=== PATIENT | female | born 1990 | race American Indian/Alaskan Native ===

== ENCOUNTER 2021-11-26 11:11 | Emergency (ER) | payer SELFPAY ==
[2021-11-26 11:26] VITALS: BP 147/90
[2021-11-26] MEDS ORDERED: CYCLOBENZAPRINE 10 MG TAB PO ONE (12:04)
[2021-11-26] MEDS ORDERED: dexAMETHasone 4 MG/ML VIAL PO ONE (12:04)
[2021-11-26] MEDS ORDERED: KETOROLAC 10 MG TAB PO ONE (12:04)
[2021-11-26] MEDS ORDERED: ACETAMINOPHEN W/CODEINE 300-30 MG TAB PO ONE (12:04)
--- NOTE | 2021-11-26 13:45 | Emergency Department Report ---
ED Extremity Problem HPI - General Chief complaint: Pain General Stated complaint: NECK PAIN Time Seen by Provider: 11/26/21 11:45 Source: patient Mode of arrival: Ambulatory Limitations: No Limitations - History of Present Illness Initial comments: 31-year-old black female with no past medical history presents to the emergency department for evaluation of left neck and arm pain. She states that she has a history of intermittent pain numbness and tingling to her left neck and arm after procedure a few years ago, and she states that pain has restarted over the past few days and has been getting progressively worse. She states pain is 10 out of 10. MD Complaint: extremity pain -: Gradual, days(s) Location: left, upper extremity (5-6) History of Same: Yes -: No myalgia, No arthralgia, No fever, No associated dyspnea, No associated chest pain Severity scale (0 -10): 10 Quality: aching Consistency: constant Worsens with: palpation Associated Symptoms: denies: chest pain, shortness of breath, fever, myalgias, arthralgias, rash - Related Data Previous Rx's Medication Instructions Recorded Last Taken Type Cyclobenzaprine [Flexeril] 10 mg PO TID PRN #30 tab 11/26/21 Unknown Rx Lidocaine [Lidoderm] 1 each TP DAILY PRN #10 patch 11/26/21 Unknown Rx Naproxen [Naprosyn] 500 mg PO BID 7 Days #14 tab 11/26/21 Unknown Rx methylPREDNISolone [Medrol 4MG 4 mg PO DAILY #1 pack 11/26/21 Unknown Rx DOSEPAK (21 tabs)] Allergies Allergy/AdvReac Type Severity Reaction Status Date / Time Penicillins Allergy Hives Verified 11/26/21 11:26 ED Review of Systems ROS: Stated complaint: NECK PAIN Other details as noted in HPI Comment: All other systems reviewed and negative Constitutional: denies: chills, fever Eyes: denies: vision change ENT: denies: congestion Respiratory: denies: shortness of breath Cardiovascular: denies: chest pain, palpitations, dyspnea on exertion, orthopnea, edema, syncope, paroxysmal nocturnal dyspnea Gastrointestinal: denies: abdominal pain, nausea, vomiting Genitourinary: denies: urgency, dysuria Musculoskeletal: denies: back pain Neurological: numbness (Left arm intermittently). denies: headache, weakness ED Past Medical Hx - Past Medical History Previous Medical History?: No Additional medical history: sciatica - Surgical History Past Surgical History?: No - Social History Smoking Status: Never Smoker - Medications Home Medications: Home Medications Medication Instructions Recorded Confirmed Last Taken Type Cyclobenzaprine [Flexeril] 10 mg PO TID PRN #30 tab 11/26/21 Unknown Rx Lidocaine [Lidoderm] 1 each TP DAILY PRN #10 patch 11/26/21 Unknown Rx Naproxen [Naprosyn] 500 mg PO BID 7 Days #14 tab 11/26/21 Unknown Rx methylPREDNISolone [Medrol 4MG 4 mg PO DAILY #1 pack 11/26/21 Unknown Rx DOSEPAK (21 tabs)] ED Physical Exam - General Limitations: No Limitations General appearance: alert, in no apparent distress - Head Head exam: Present: atraumatic, normocephalic - Eye Eye exam: Present: normal appearance. Absent: conjunctival injection - Neck Neck exam: Present: normal inspection, tenderness (Left side only with numbness down left arm on palpation), full ROM. Absent: lymphadenopathy - Respiratory Respiratory exam: Present: normal lung sounds bilaterally. Absent: respiratory distress, wheezes, rales, rhonchi, stridor, chest wall tenderness - Cardiovascular Cardiovascular Exam: Present: regular rate, normal heart sounds - GI/Abdominal GI/Abdominal exam: Present: soft, normal bowel sounds. Absent: distended, tenderness, guarding, rebound, rigid - Extremities Exam Extremities exam: Present: normal inspection - Expanded Upper Extremity Exam Left Shoulder Exam: Present: full ROM, tenderness Vascular: Present: normal capillary refill, radial pulse. Absent: vascular compromise, Pallo, pulse deficit brachial art - Neurological Exam Neurological exam: Present: alert, oriented X3, normal gait - Psychiatric Psychiatric exam: Present: normal affect, normal mood - Skin Skin exam: Present: warm, dry, intact, normal color ED Course Vital Signs 11/26/21 11/26/21 11:20 12:45 Temperature 98.3 F Pulse Rate 98 H Respiratory 14 18 Rate Blood Pressure 147/90 O2 Sat by Pulse 100 99 Oximetry ED Medical Decision Making - Medical Decision Making 31-year-old black female with no past medical history presents to the emergency department for evaluation of left neck and arm pain. She states that she has a history of intermittent pain numbness and tingling to her left neck and arm after procedure a few years ago, and she states that pain has restarted over the past few days and has been getting progressively worse. She states pain is 10 out of 10. Physical exam consistent with cervical radicular pain. She will be treated with steroids, nsaids and muscle relaxants now and at home. She will also have lidoderm patches to use as needed for pain. She is advised to take medications as prescribed and follow up with her pcp for further evaluation and management. She verbalizes understanding of and agreement with plan of care. Critical care attestation.: If time is entered above; I have spent that time in minutes in the direct care of this critically ill patient, excluding procedure time. ED Disposition Clinical Impression: Cervical radicular pain Disposition: 01 HOME / SELF CARE / HOMELESS Is pt being admited?: No Does the pt Need Aspirin: No Condition: Stable Instructions: Cervical Radiculopathy, [id number] Additional Instructions: Take medications as prescribed. Follow-up primary care provider if no improvement or worsening symptoms. Turn to emergency department as needed. Prescriptions: Cyclobenzaprine [Flexeril] 10 mg PO TID PRN #30 tab PRN Reason: Muscle Spasm Lidocaine [Lidoderm] 1 each TP DAILY PRN #10 patch PRN Reason: Pain, Moderate (4-6) methylPREDNISolone [Medrol 4MG DOSEPAK (21 tabs)] 4 mg PO DAILY #1 pack Naproxen [Naprosyn] 500 mg PO BID 7 Days #14 tab Referrals: MARIA C ALEX MD [Primary Care Provider] - 3-5 Days LINDA ZABALA MD [Staff Physician] - 3-5 Days Forms: Work/School Release Form(ED) Time of Disposition: 13:45
== END 2021-11-26 14:28 | disposition home or self-care (01) ==
LOC: ED 11:11
DX: M54.12 Radiculopathy, cervical region (principal)
CPT/HCPCS: 99282; J1100